=== PATIENT | male | born 1945 | race Hispanic/Latino ===

== ENCOUNTER → 2020-12-03 | Outpatient (CLI) | payer OTHER, MEDICARE | END | disposition home or self-care (01) | LOC: RAH 08:32 | PROVIDERS: ATTEND Internal Medicine Cardiovascular Disease | DX: R01.1 Cardiac murmur, unspecified (principal); R09.89 Other specified symptoms and signs involving the circulatory and respiratory systems | CPT/HCPCS: 93306; 93356; 93880 ==

== ENCOUNTER 2021-01-13 08:44 | Day surgery (SDC) | payer OTHER, MEDICARE ==
[2021-01-11 12:59] LABS: BASOPHILS % (AUTO) 1.1 % (0.0-5.0); EOSINOPHILS % (AUTO) 2.6 % (0.0-8.0); HEMATOCRIT 43.3 % (42-54); LYMPHOCYTES % (AUTO) 23.3 % (21.0-51.0); MEAN CORPUSCULAR HEMOGLOBIN 29.1 pg (27.0-33.0); MEAN CORPUSCULAR HGB CONC 33.3 g/dL (32.0-36.0); MEAN CORPUSCULAR VOLUME 87.7 fL (79-99); MONOCYTES % (AUTO) 10.1 % (3.0-13.0); NEUTROPHILS % (AUTO) 62.7 % (40.0-77.0); PLATELET COUNT (AUTO) 159 K/uL (130-400); RED BLOOD CELL COUNT(AUTO) 4.94 MIL/uL (4.50-6.20); WHITE BLOOD COUNT (AUTO) 6.2 K/uL (4.8-10.8)
[2021-01-11 13:06] LABS: CREATININE 1.1 mg/dL (0.5-1.5); POTASSIUM 4.1 mmol/L (3.5-5.1)
[2021-01-11 13:08] LABS: INR 1.09 (0.85-1.15); PROTHROMBIN TIME 11.8 SEC (9.6-11.6)
[2021-01-11 13:09] LABS: PARTIAL THROMBOPLASTIN TIME 30.2 SEC (26.3-35.5)
[2021-01-11 13:15] LABS: APPEARANCE,URINE Clear (CLEAR); BILIRUBIN,URINE Negative (NEGATIVE); COLOR,URINE Yellow (YELLOW); GLUCOSE, URINE (UA) Negative (NEGATIVE); KETONES,URINE Negative (NEGATIVE); LEUKOCYTE ESTERASE ,URINE Negative (NEGATIVE); NITRATE,URINE Negative (NEGATIVE); OCCULT BLOOD,URINE Negative (NEGATIVE); PROTEIN,URINE Negative (NEGATIVE)
[~2021-01-13] VITALS: Ht 168.9 cm; Wt 116.1 kg
[~2021-01-13 08:44] MED LIST: AMLO-257 PO; ASPI-1443 PO; LISI20TA24 PO; ROSU10TA22 PO; SODIUM CHLORIDE 0.9% 1000ML 1,000 ML IV ONE; TAMS-1 PO
[2021-01-13 08:50] VITALS: BP 147/64
[2021-01-13] MEDS ORDERED: LIDOCAINE HCL 400MG/20ML VIAL ONE (14:27)
[2021-01-13] MEDS ORDERED: SODIUM BICARB 50MEQ 50ML VIAL 50 ML ONE (14:27)
[2021-01-13] MEDS ORDERED: NITROGLYCERIN 2 MG/VIAL VIAL IV ONE (14:27)
[2021-01-13] MEDS ORDERED: IOHEXOL 350 MG/ML 100ML INFUS..BTL IV ONE (14:27)
[2021-01-13] MEDS ORDERED: HEPARIN SODIUM 1000UNIT/ML 10ML VIAL ONE (14:27)
[2021-01-13] MEDS ORDERED: MIDAZOLAM HCL 1 MG/ML 2ML VIAL ONE ×2 (14:50→14:54)
[2021-01-13] MEDS ORDERED: MEPERIDINE-PF 25 MG/ML SYG ONE ×2 (14:50→14:54)
[2021-01-13 16:25] VITALS: BP 123/61
[2021-01-13 16:40] VITALS: BP 125/55
[2021-01-13 16:55] VITALS: BP 125/55
[2021-01-13 17:10] VITALS: BP 124/55
[2021-01-13 17:38] VITALS: BP 128/58
== END 2021-01-13 22:20 | disposition home or self-care (01) ==
LOC: DAH 08:44
PROVIDERS: ATTEND Internal Medicine Cardiovascular Disease
DX: I35.2 Nonrheumatic aortic (valve) stenosis with insufficiency (principal); I25.119 Atherosclerotic heart disease of native coronary artery with unspecified angina pectoris; I11.0 Hypertensive heart disease with heart failure; E78.5 Hyperlipidemia, unspecified; I50.32 Chronic diastolic (congestive) heart failure; I25.2 Old myocardial infarction; E66.9 Obesity, unspecified; Z82.49 Family history of ischemic heart disease and other diseases of the circulatory system; Z86.73 Personal history of transient ischemic attack (TIA), and cerebral infarction without residual deficits; Z82.5 Family history of asthma and other chronic lower respiratory diseases; Z79.82 Long term (current) use of aspirin; Z79.01 Long term (current) use of anticoagulants
CPT/HCPCS: 36415; 71045; 80048; 81003; 85025; 85610; 85730; 93005; 93460; 93567; A4215; A4216; A4221; A4222; A4223 ×3; A4606; A4663; C1760; C1769 ×2; C1893; C1894 ×2; J1644; J2175 ×2; J2250 ×2; J3490 ×3; J7030; Q9965 ×2; Q9967; 99156; 99157

== ENCOUNTER → 2021-03-09 | Outpatient (CLI) | payer OTHER, MEDICARE ==
[~2021-03-09] MED LIST changes: -SODIUM CHLORIDE 0.9% 1000ML 1,000 ML IV ONE
[2021-03-09 12:17] LABS: CREATININE 0.9 mg/dL (0.5-1.5)
== END | disposition home or self-care (01) ==
LOC: LAB 11:11
PROVIDERS: ATTEND Internal Medicine Cardiovascular Disease
DX: I27.20 Pulmonary hypertension, unspecified (principal)
CPT/HCPCS: 36415; 82565; 84520

== ENCOUNTER → 2021-03-16 | Outpatient (CLI) | payer OTHER, MEDICARE ==
[~2021-03-16] MED LIST changes: +IOHEXOL 350 MG/ML 100ML INFUS..BTL IV ONE
== END | disposition home or self-care (01) ==
LOC: RAH 08:29
PROVIDERS: ATTEND Internal Medicine Cardiovascular Disease
DX: I35.0 Nonrheumatic aortic (valve) stenosis (principal); I51.7 Cardiomegaly; J90 Pleural effusion, not elsewhere classified; K57.30 Diverticulosis of large intestine without perforation or abscess without bleeding; K76.89 Other specified diseases of liver; R16.0 Hepatomegaly, not elsewhere classified
CPT/HCPCS: 74174; 75574; Q9967

== ENCOUNTER → 2024-03-25 | Outpatient (CLI) | payer OTHER, MEDICARE ==
[~2024-03-25] MED LIST changes: -IOHEXOL 350 MG/ML 100ML INFUS..BTL IV ONE
== END | disposition home or self-care (01) ==
LOC: SHCH 09:51
PROVIDERS: ATTEND Internal Medicine Cardiovascular Disease
DX: I35.0 Nonrheumatic aortic (valve) stenosis (principal)
CPT/HCPCS: 93306

== ENCOUNTER → 2024-04-04 | Outpatient (CLI) | payer OTHER, MEDICARE ==
[2024-04-04] MEDS: REGADENOSON 0.4 MG/5 ML PF SYG IVP ONE (09:43)
== END | disposition home or self-care (01) ==
LOC: SHCH 07:41
PROVIDERS: ATTEND Internal Medicine Cardiovascular Disease
DX: I49.8 Other specified cardiac arrhythmias (principal); I35.0 Nonrheumatic aortic (valve) stenosis; R06.00 Dyspnea, unspecified
CPT/HCPCS: 78452; 93017; J2785; A9500 ×2

== ENCOUNTER 2024-08-15 07:57 | Day surgery (SDC) | payer OTHER, MEDICARE ==
[2024-08-13 09:30] VITALS: BP 166/70; PULSE 80; RESP 18; TEMP 97.2
[2024-08-13 09:35] LABS: BASOPHILS # (AUTO) 0.06 K/uL (0.00-0.20); BASOPHILS % (AUTO) 0.9 % (0.0-5.0); EOSINOPHILS # (AUTO) 0.18 K/uL (0.00-0.70); EOSINOPHILS % (AUTO) 2.7 % (0.0-8.0); HEMATOCRIT 44.7 % (42-54); IMMATURE GRANULOCYTE ABSOLUTE 0.03 K/uL (0-1); LYMPHOCYTES # (AUTO) 1.3 K/uL (1.0-4.8); LYMPHOCYTES % (AUTO) 19.1 % (21.0-51.0); MEAN CORPUSCULAR HEMOGLOBIN 30.1 pg (27.0-33.0); MEAN CORPUSCULAR HGB CONC 34.5 g/dL (32.0-36.0); MEAN CORPUSCULAR VOLUME 87.5 fL (79-99); MONOCYTES # (AUTO) 0.8 K/uL (0.1-1.0); MONOCYTES % (AUTO) 12.4 % (3.0-13.0); NEUTROPHILS # (AUTO) 4.3 K/uL (1.8-7.7); NEUTROPHILS % (AUTO) 64.4 % (40.0-77.0); PLATELET COUNT (AUTO) 163 K/uL (130-400); RED BLOOD CELL COUNT(AUTO) 5.11 MIL/uL (4.50-6.20); RED CELL DISTRIBUTION WIDTH 12.4 % (11.0-15.5); WHITE BLOOD COUNT (AUTO) 6.6 K/uL (4.8-10.8)
[2024-08-13 09:41] LABS: POTASSIUM 4.2 mmol/L (3.5-5.1)
[2024-08-13 09:43] LABS: INR 0.98 (0.85-1.15)
[2024-08-13 09:45] LABS: PARTIAL THROMBOPLASTIN TIME 28.8 SEC (26.3-35.5)
[2024-08-13 10:07] LABS: B-TYPE NATRIURETIC PEPTIDE 13 pg/mL (0-100)
[2024-08-13 10:12] LABS: APPEARANCE,URINE CLEAR (CLEAR); BILIRUBIN,URINE NEGATIVE (NEGATIVE); COLOR,URINE YELLOW (YELLOW); GLUCOSE, URINE (UA) NEGATIVE (NEGATIVE); KETONES,URINE NEGATIVE (NEGATIVE); LEUKOCYTE ESTERASE ,URINE NEGATIVE Leu/uL (NEGATIVE); NITRATE,URINE NEGATIVE (NEGATIVE); OCCULT BLOOD,URINE NEGATIVE (NEGATIVE); PROTEIN,URINE NEGATIVE (NEGATIVE)
[2024-08-13 10:13] LABS: ADD UA MICROSCOPIC NO
--- NOTE | 2024-08-13 10:14 | HMCIMG ---
CHEST 1VW HISTORY: Preop COMPARISON: 01/11/2021 FINDINGS: A frontal projection of the chest was obtained. Prominent interstitial markings are seen with possible superimposed infiltrates. The heart is enlarged. Degenerative changes are seen. No evidence of aortic calcification is seen. IMPRESSION: 1. Prominent interstitial markings are seen with possible superimposed infiltrates.
--- NOTE | 2024-08-13 10:44 | EKG ---
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 : 1945 Requested By: ANNI GILES II Order Number: [id number] Reading MD: Deidre Pérez Measurements Intervals [place] Rate: 64 P: -7 MI: 191 QRS: -33 QRSD: 171 T: 136 QT: 492 QTc: 510 Interpretive Statements Sinus rhythm Left bundle branch block Compared to ECG 01/11/2021 12:36:35 Left bundle-branch block now present Intraventricular conduction delay no longer present Left ventricular hypertrophy no longer present Early repolarization no longer present Myocardial infarct finding no longer present Electronically Signed On 08-14-2024 08:16:55 SEAT BUILDER by Deidre Pérez Please click the below link to view image of tracing.
--- NOTE | 2024-08-14 09:47 | NUR ---
RE: CXR REPORTED CX RESULTS TO CARLO WEISS, NO. PATIENT ASYMPTOMATIC. NO NEW ORDERS RECEIVED.
[~2024-08-15] VITALS: Ht 167.6 cm; Wt 126.6 kg
[2024-08-15] VITALS (8 sets, daily range): BP systolic 107–184; BP diastolic 44–84; PULSE 57–84; RESP 14–16; TEMP 97
[~2024-08-15 07:57] MED LIST changes: +DUTA1CPM4 PO; -LISI20TA24 PO; +LOSA100T59 PO; -ROSU10TA22 PO; +ROSU20TA98 PO; -TAMS-1 PO; +VIBE75TA PO
[2024-08-15] MEDS: 0.9%NACL 1000ML 1,000 ML IV SCH (10:00)
[2024-08-15] MEDS ORDERED: LIDOCAINE HCL 400MG/20ML VIAL ONE (11:08)
[2024-08-15] MEDS ORDERED: SODIUM BICARB 50MEQ 50ML VIAL 50 ML ONE (11:08)
[2024-08-15] MEDS ORDERED: IOHEXOL 350 MG/ML 100ML INFUS..BTL IV ONE ×2 (11:08→12:42)
[2024-08-15] MEDS ORDERED: HEParin 10,000 UNIT/10ML (1,000 UNIT/ML) VIAL ONE (11:08)
[2024-08-15] MEDS ORDERED: HEParin-NS 1,000 UNIT/500 ML 1,000 ML IV ONE (11:09)
[2024-08-15] MEDS ORDERED: NITROGLYCERIN 50MG VIAL ONE (11:09)
[2024-08-15] MEDS ORDERED: niCARDIpine 25MG INJ IV ONE (11:25)
[2024-08-15] MEDS ORDERED: MEPERIDINE-PF 25 MG/ML SYG ONE ×3 (11:26→12:23)
[2024-08-15] MEDS ORDERED: MIDAZOLAM HCL 1 MG/ML 2ML VIAL ONE ×4 (11:26→12:53)
[2024-08-15] MEDS ORDERED: MEPERIDINE-PF 50 MG/ML SYG ONE (12:53)
[2024-08-15] MEDS ORDERED: HEParin-NS 1,000 UNIT/500 ML 500 ML IV ONE (12:53)
[2024-08-15] MEDS ORDERED: ASPIRIN 325MG EC TAB PO ONE (13:19)
[2024-08-15] MEDS ORDERED: cloPIDOgrel 300MG TAB ONE (13:19)
[2024-08-15] MEDS ORDERED: 0.9%NACL 1000ML 1,000 ML IV SCH (13:30)
--- NOTE | 2024-08-15 13:59 | CCATH ---
PROCEDURES: 1. Left heart catheterization. 2. Selective right and left coronary arteriogram. 3. Balloon angioplasty and stent placement in the LAD. 4. Conscious sedation. INDICATIONS: 1. Known history of coronary artery disease. 2. Recurrent anginal equivalent on presentation. 3. Abnormal Cardiolite. 4. Cardiomyopathy. 5. History of TAVR. COMPLICATIONS: None. TOTAL CONTRAST: 120. APPROACH: Right radial approach. DESCRIPTION OF PROCEDURE: The patient was taken to the cardiac catheterization lab after appropriate operative consents were signed. He was prepped and draped in the usual fashion. After conscious sedation was administered, right radial artery region was infiltrated with 2% Xylocaine without epinephrine. A 6-[place] slender radial sheath was advanced in retrograde fashion by modified Seldinger technique. At this point, we were able to advance a TIG 4 catheter, which was positioned into the ascending aorta. Unfortunately, the patient had very tortuous subclavian artery, necessitating placement of a radial slender 75 cm sheath. The TIG 4 was then advanced over an wire into the left ventricular cavity. Left ventricular end-diastolic pressure measurement was obtained. Pullback revealed no aortic stenosis in the TAVR prosthetic valve. It was important to note that the patient had a very horizontal orientation of his heart with a TAVR almost lying in flat orientation east to west. This made cannulation of the vessels quite challenging. The TIG 4 was able to cannulate the left main; however, it was suboptimal cannulation, but we were able to obtain adequate imaging. The left main was large and short and bifurcated into LAD and circumflex. Circumflex was a large vessel that gave rise to a large obtuse marginal 1 and ongoing circ with no additional vessels. The LAD was a large vessel that gave rise to several diagonals and septal perforators. The mid LAD segment had a 90% stenotic lesion. The distal LAD was large and had a large recurrent apical branch. The right coronary artery was subselectively imaged by the TIG 4 catheter, so we elected to utilize multiple catheters and finally we were able to cannulate the RCA with a FL3.5 guide. This was engaged in an aberrantly arising coronary artery in a superior orientation. This was a moderately large vessel that gave rise to an acute marginal, a tiny PDA and a moderately sized PLVB. There were 50% tandem lesions in the mid RCA, but no other significant stenotic lesions. At this point, we elected to proceed with attempted angioplasty and stenting of the LAD with full knowledge that this was going to be a challenging procedure given the patient's cardiac orientation and the difficult cannulation of the left main. We tried multiple catheters, but we were ultimately able to cannulate the left main with an XB3. The 0.014 wire was advanced and positioned into the distal LAD. Given the poor support with the guide catheter, we elected to advance a GuideLiner, which was placed in the LAD proximal to the stenotic lesions. We were then able to advance a 2.75 x 22 [place] stent, which was deployed in the mid LAD with nominal pressures. The final angiographic result was good. The patient tolerated the procedure well and left the cardiac catheterization lab in stable condition. FINAL IMPRESSION: 1. No evidence of transaortic valve TAVR gradient. 2. Severe coronary artery disease in mid LAD. 3. Status post successful balloon angioplasty and stenting of the mid LAD with a 2.75 x 22 [place] to nominal pressures with good results. PLAN: Continue medical management. TID: [id number] RECEIPT: [id number]
[2024-08-15] MEDS ORDERED: METO25TA3 PO (14:16)
[2024-08-15] MEDS ORDERED: CLOP75TA32 PO (14:16)
== END 2024-08-15 18:00 | disposition home or self-care (01) ==
LOC: DAH 07:57
PROVIDERS: ATTEND Internal Medicine Cardiovascular Disease
DX: I25.118 Atherosclerotic heart disease of native coronary artery with other forms of angina pectoris (principal); I42.9 Cardiomyopathy, unspecified; I11.0 Hypertensive heart disease with heart failure; I50.42 Chronic combined systolic (congestive) and diastolic (congestive) heart failure; I44.7 Left bundle-branch block, unspecified; R94.39 Abnormal result of other cardiovascular function study; E66.9 Obesity, unspecified; E78.5 Hyperlipidemia, unspecified; Z68.41 Body mass index [BMI] 40.0-44.9, adult; Z95.5 Presence of coronary angioplasty implant and graft; Z95.2 Presence of prosthetic heart valve; Z79.899 Other long term (current) drug therapy
CPT/HCPCS: 80048; 83880; 85025; 85610; 85730; 81003; 36415; 71045; 93005; 85347; 93458; C9600; C1887 ×7; C1769 ×2; C1874; A4649; C1894; J3490 ×4; J7030; J1644 ×3; J2250 ×4; J2175 ×4; Q9967 ×2; A4215; A4222; A4221; A4663; A4216; A4606; Q9965 ×3; A4223 ×3; 96360; 96361; 99156; 99157

== ENCOUNTER → 2024-10-16 | Outpatient (CLI) | payer OTHER, MEDICARE ==
[~2024-10-16] MED LIST changes: +CLOP75TA32 PO; +CLOT15CR5 TP; +METO25TA3 PO
[2024-10-16 16:21] LABS: BASOPHILS # (AUTO) 0.04 K/uL (0.00-0.20); BASOPHILS % (AUTO) 0.6 % (0.0-5.0); EOSINOPHILS % (AUTO) 2.8 % (0.0-8.0); HEMATOCRIT 41.3 % (42-54); IMMATURE GRANULOCYTE ABSOLUTE 0.03 K/uL (0-1); LYMPHOCYTES # (AUTO) 0.9 K/uL (1.0-4.8); LYMPHOCYTES % (AUTO) 11.8 % (21.0-51.0); MEAN CORPUSCULAR HEMOGLOBIN 28.9 pg (27.0-33.0); MEAN CORPUSCULAR HGB CONC 33.4 g/dL (32.0-36.0); MEAN CORPUSCULAR VOLUME 86.6 fL (79-99); MONOCYTES # (AUTO) 0.6 K/uL (0.1-1.0); MONOCYTES % (AUTO) 8.5 % (3.0-13.0); NEUTROPHILS # (AUTO) 5.5 K/uL (1.8-7.7); NEUTROPHILS % (AUTO) 75.9 % (40.0-77.0); PLATELET COUNT (AUTO) 239 K/uL (130-400); RED BLOOD CELL COUNT(AUTO) 4.77 MIL/uL (4.50-6.20); RED CELL DISTRIBUTION WIDTH 12.5 % (11.0-15.5); WHITE BLOOD COUNT (AUTO) 7.2 K/uL (4.8-10.8)
[2024-10-16 16:42] LABS: ALBUMIN 3.3 g/dL (3.5-5.0); BILIRUBIN,TOTAL 0.8 mg/dL (0.2-1.0); POTASSIUM 4.1 mmol/L (3.5-5.1); TOTAL PROTEIN, SERUM 7.4 g/dL (6.0-8.3)
== END | disposition home or self-care (01) ==
LOC: LAB 13:07
PROVIDERS: ATTEND Internal Medicine Cardiovascular Disease
DX: I35.0 Nonrheumatic aortic (valve) stenosis (principal); I50.9 Heart failure, unspecified; I11.9 Hypertensive heart disease without heart failure; I25.10 Atherosclerotic heart disease of native coronary artery without angina pectoris; E78.5 Hyperlipidemia, unspecified
CPT/HCPCS: 36415; 80053; 83880; 85025